=== PATIENT | female | born 1965 | race Caucasian/White ===

== ENCOUNTER 2019-09-25 08:45 | Outpatient (CLI) | payer BC ==
--- NOTE | 2019-09-25 10:09 | CT ---
CT SINUSES WITHOUT CONTRAST: HISTORY: Nasal polyps. COMPARISON: None. FINDINGS: The visualized brain parenchyma is unremarkable. Orbits: Bilateral ocular lenses are appropriately located. Both globes are intact. Retrobulbar fat is preserved. Symmetric attenuation of the optic nerves and ocular rectus muscles. The visualized aerodigestive tract is patent. No obvious mucosal abnormality. The visualized maxilla and mandible are intact. There is adequate aeration of the frontal sinuses, ethmoid air cells, left sphenoid sinus and left ma xillary sinus. There is mild mucosal disease of the right sphenoid sinus and right maxillary sinus. Coronal images demonstrate evidence of previous sinonasal surgery. There are bilateral uncinectomies, bilateral partial ethmoidectomies, bilateral turbinectomies. With regard to the osseous margins of the sinuses no fractures, irregularity or erosion. Nasal septum is midline. IMPRESSION: Extensive sinonasal surgery as described above. No significant sinus opacification or CT evidence of a sinonasal polyp. Transcribed Date/Time: 09/25/2019 10:23 AM
== END 2019-09-25 08:46 | disposition home or self-care (01) ==
LOC: SCSCT 08:45
PROVIDERS: ATTEND Allergy & Immunology
DX: J33.9 Nasal polyp, unspecified (principal)